=== PATIENT | male | born 1980 | race Two or more races ===

== ENCOUNTER 2021-09-05 15:55 | Emergency (ER) | payer OTHER ==
[~2021-09-05] VITALS: Ht 177.8 cm; Wt 76.7 kg
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
[2021-09-05] MEDS ORDERED: IBUPROFEN 600 MG TABLET ONE (16:24)
[2021-09-05] MEDS: IBUPROFEN 600 MG TABLET PO ONE (16:31)
[2021-09-05 16:42] VITALS: BP 139/76
--- NOTE | 2021-09-05 16:42 | NUR ---
Patient discharged to home in stable condition. Written and verbal after care instructions given. Patient verbalizes understanding of instruction.
== END 2021-09-05 16:43 ==
LOC: ER 16:00
DX: S46.911A Strain of unspecified muscle, fascia and tendon at shoulder and upper arm level, right arm, initial encounter (principal); Y04.0XXA Assault by unarmed brawl or fight, initial encounter; Y93.89 Activity, other specified; Y92.89 Other specified places as the place of occurrence of the external cause; Y99.8 Other external cause status